=== PATIENT | male | born 1990 | race Caucasian/White ===

== ENCOUNTER 2020-06-08 17:54 | Emergency (ER) | payer OTHER ==
[~2020-06-08] VITALS: Ht 188 cm; Wt 90.7 kg
[2020-06-08 19:58] LABS: ABSOLUTE NEUTROPHILS 3.8 thou/uL (1.4-8.2); BASOPHILS 0.9 % (0.0-2.0); EOSINOPHILS 0.4 % (0.0-3.0); HEMATOCRIT 48.3 % (42.0-52.0); HEMOGLOBIN 16.6 gm/dL (14.0-18.0); LYMPHOCYTES 27.2 % (24.0-44.0); MCH 30.2 pg (26.0-34.0); MCHC 34.4 g/dL (28.0-37.0); MCV 87.8 fL (80.0-100.0); MONOCYTES 9.3 % (1.0-8.0); PLATELET COUNT 220 thou/uL (150-400); POLYS 62.2 % (36.0-66.0); RDW 12.8 % (10.5-14.5)
[2020-06-08 20:15] LABS: ANION GAP 9 mmol/L (7-16); BUN 14 mg/dL (7-18); CALCIUM 9.2 mg/dL (8.5-10.1); CHLORIDE 102 mmol/L (98-107); CO2 27 mmol/L (21-32); CREATININE 1.2 mg/dL (0.7-1.3); GLUCOSE 83 mg/dL (74-106); POTASSIUM 3.2 mmol/L (3.5-5.1); SODIUM 138 mmol/L (136-145)
[2020-06-08 20:25] LABS: ALBUMIN 4.7 g/dL (3.4-5.0); SGOT 33 U/L (15-37); SGPT 54 U/L (16-63); TOTAL BILIRUBIN 0.5 mg/dL (0.2-1.0); TOTAL PROTEIN 7.7 g/dL (6.4-8.2); TROPONIN-I <0.06 ng/mL (<0.06)
[2020-06-08] MEDS ORDERED: ATIVAN1 M1 PO (20:38)
[2020-06-08] MEDS ORDERED: POTASSIUM20 PO (20:38)
[2020-06-08 21:00] VITALS: BP 15/90
--- NOTE | 2020-06-10 07:25 | EKG ---
[place] [address] [facility] [employer] [place] [address] ELECTROCARDIOGRAM REPORT Name: DEMERTIA MORSE Room #: [facility] 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 : 1990 Requested By: Ev Menezes Order Number: [id number] MD: Servando Chambers Measurements Intervals [place] Rate: 94 P: 67 NC: 132 QRS: 99 QRSD: 99 T: 12 QT: 368 QTc: 461 Interpretive Statements Sinus rhythm Probable left atrial enlargement Borderline right axis deviation No previous ECG available for comparison Electronically Signed On 06-10-2020 7:25:29 [employer] INSPECTOR by Servando Chambers [email or web address] <ELECTRONICALLY SIGNED> By: Servando Chambers MD, [facility] 06/10/20 0725 1805 1805 Servando Chambers MD, FACC /EPI
== END 2020-06-08 20:55 | disposition home or self-care (01) ==
LOC: ER 17:54
PROVIDERS: Physician Assistant
DX: F41.9 Anxiety disorder, unspecified (principal); E87.6 Hypokalemia

== ENCOUNTER → 2020-07-05 | Outpatient (CLI) | payer OTHER ==
[~2020-07-05] MED LIST: ATIVAN1 M1 PO; POTASSIUM20 PO
== END ==
LOC: SJCVCIMAG 13:05
PROVIDERS: ATTEND Internal Medicine Cardiovascular Disease
DX: R53.83 Other fatigue (principal)